=== PATIENT | female | born 1965 | race Caucasian/White ===

== ENCOUNTER 2016-06-29 15:02 | Emergency (ER) | payer OTHER ==
[2016-06-29 15:20] LABS: MANUAL DIFF NEEDED? NO
[2016-06-29 15:28] LABS: BASO% 0.2 % (0.0-0.8); EOS# 0.04 X1000 (0.0-0.7); EOS% 0.7 % (0.0-10.0); HEMATOCRIT 40.1 % (37.0-47.0); HEMOGLOBIN 14.2 g/dL (12.0-16.0); LYMPH# 1.54 X1000 (1.2-3.4); LYMPH% 25.1 % (20.5-51.1); MCH 30.9 PG (27-31); MCHC 35.4 g/dL (33-37); MCV 87.2 FL (81-99); MONO# 0.29 X1000 (0.11-0.59); MONO% 4.7 % (1.7-9.3); MPV 9.2 FL (7.4-10.4); NEUT% 69.3 % (42.2-75.2); PLT 229 X1000 (130-400)
[2016-06-29 15:34] LABS: INR 1.1; PROTIME 11.7 Seconds (9.2-11.7); PTT 24.3 Seconds (22.0-36.0)
[2016-06-29 15:38] LABS: AGAP 15; ALBUMIN 4.1 g/dL (3.5-5.0); ALKALINE PHOSPHATASE 89 U/L (32-104); BUN 15 mg/dL (8-22); CALCIUM 9.4 mg/dL (8.8-10.2); CHLORIDE 102 mmol/L (98-107); COSMO 282; GOT 116 U/L (10-30); GPT 53 U/L (10-36); MAGNESIUM 1.8 mg/dL (1.5-2.7); POTASSIUM 3.5 mmol/L (3.5-5.1); SODIUM 140 mmol/L (136-145); TCO2 23 mmol/L (25-35); TOTAL BILIRUBIN 0.59 mg/dL (0.20-1.00); TOTAL PROTEIN 6.4 g/dL (6.3-8.3)
[2016-06-29 15:40] LABS: CK PROFILE 187 U/L (24-173)
[2016-06-29 15:58] LABS: CK INDEX 1.7 (0.0-2.5); CK-MB 3.13 ng/mL (0.0-5.0)
--- NOTE | 2016-06-29 16:07 | Diag Imaging Result Document ---
PROCEDURE NAME: CHEST-2 VIEWS - 06/29/2016 TWO VIEWS OF THE CHEST: FINDINGS: There are no previous studies. There are no focal opacities. IMPRESSION: No acute disease.
[2016-06-29] MEDS ORDERED: ASPIRIN PO ONE (16:38)
[2016-06-29] MEDS ORDERED: G.I. COCKTAIL PO ONE (16:45)
[2016-06-29] MEDS ORDERED: ZOFRAN ODT PO ONE (16:45)
--- NOTE | 2016-06-29 16:52 | PROVIDER DOCUMENTATION ---
HPI-General Adult - General Chief Complaint: Chest Pain Stated Complaint: CP Time Seen by Provider: 06/29/16 16:37 Allergies/Adverse Reactions: Patient Allergies Allergy/AdvReac Type Severity Reaction Status Date / Time levofloxacin [From Levaquin] Allergy RASH Verified 06/29/16 18:25 ofloxacin [From Floxin] Allergy RASH Verified 06/29/16 18:25 acetaminophen AdvReac RASH Verified 06/29/16 18:25 [From Darvocet-N] propoxyphene napsylate * AdvReac RASH Verified 06/29/16 18:25 [From Darvocet-N] Home Medications: Home Medication List Medication Instructions Recorded Confirmed Last Taken Type Aspirin 81 mg PO DAILY 06/29/16 06/29/16 06/29/16 08:00 History 81 MG Citalopram Hydrobromide [Celexa] 20 mg PO DAILY 06/29/16 06/29/16 06/29/16 08: 00 History 20 MG Clonazepam [Klonopin] 1 mg PO DAILY 06/29/16 06/29/16 06/29/16 08:00 History 1 MG Levothyroxine Sodium [Synthroid] 88 mcg PO DAILY 06/29/16 06/29/16 06/29/16 08: 00 History 88 MCG Linaclotide [Linzess] 290 mcg PO DAILY 06/29/16 06/29/16 06/29/16 08:00 History 290 MCG Omeprazole [Prilosec] 40 mg PO DAILY #20 capsule. 06/29/16 Unknown Rx Phenytoin [Dilantin] 400 mg PO DAILY 06/29/16 06/29/16 06/29/16 08:00 History 400 MG - History of Present Illness -Gen Adult Nature of Presenting Problems: Pt states that today she was at a parade and started having mid chest pain with Nausea and vomiting. She states that it came out of nowhere and that she was given nitro spray SL and ASA 325mg at the time of onset. She also states that last week she began having right sided facial numbness and now has a mild right sided facial palsy on exam. Review of Systems - Adult - REVIEW OF SYSTEMS - ADULT Constitutional: reports: no symptoms reported. denies: chills, fever, fatique, night sweats, weight gain, weight loss Eyes: reports: no symptoms reported. denies: discharge, dry eyes, decreased vision, blurred vision, double vision, eye pain Ears, Nose, Mouth & Throat: reports: no symptoms reported. denies: ear discharge, ear pain, hearing loss, tinnitus, epistaxis, sinus problem, nose pain , loose teeth, mouth/dental pain, mouth swelling, hoarseness, throat pain, throat swelling Cardiovascular: reports: see HPI, chest pain. denies: edema, heart murmur, irregular heart rate, orthopnea, palpitations, poor circulation, PND, syncope Respiratory: reports: no symptoms reported. denies: chronic cough, cough, dyspnea on exertion, hemoptysis, shortness of breath, wheezing Gastrointestinal: reports: see HPI, abdominal pain, nausea, vomiting. denies: hematemesis, constipation, diarrhea, difficulty swallowing, frequent heartburn, poor appetite, rectal bleeding Genitourinary: reports: no symptoms reported. denies: dysuria, discharge, frequency, flank pain, frequent UTI's, hesitency, urinary retention, urgency Musculoskeletal: reports: no symptoms reported. denies: bone pain, frequent leg cramps, joint swelling, muscle aches, muscle weakness, neck pain Integumentary: reports: no symptoms reported. denies: hives, hair loss, itching , skin sores/ulcer Neurological: reports: see HPI, numbness, paresthesia. denies: ataxia, dizziness/vertigo, headache/migraines, loss of balance, seizure, slurred speech , syncope, tremors Psychiatric: reports: no symptoms reported. denies: anxiety, anti-depressant use, alcohol/drug dependence, depression, emotional problems, insomnia, panic attacks, suicidal thoughts Endocrine: reports: no symptoms reported. denies: change in skin pigment, excessive sweating, goiter, cold intolerance, increased hunger, increased thirst , polyuria Hematologic/Lymphatic: reports: no symptoms reported. denies: blood clots, easy bruising, low blood count, prolonged bleeding, swollen lymph nodes, transfusions Allergic/Immunologic: reports: no symptoms reported. denies: allergic reactions , allergic rhinitis, asthma, eczema, frequent infections, hay fever, hives, positive PPD, urticaria All Other Systems: Reviewed and Negative Past History - Adult - PAST MEDICAL HISTORY-ADULT Review of Records: reports: Old Records Reviewed, Nursing Assessment Review, Medications Reviewed, Social history reviewed & non-contributory. Major Childhood Illnesses: reports: denies history Cardiovascular: reports: denies history Respiratory: reports: denies history Gastrointestinal: reports: denies history Obstetrical/Gynecological: reports: denies history Genitourinary: reports: denies history Musculoskeletal: reports: denies history Neurological: reports: denies history Endocrine/Immune: reports: denies history Other Conditions: reports: denies history - FAMILY HISTORY Family History: reviewed, not pertinent Physical Exam-General - PHYSICAL EXAM-ADULT Initial Vital Signs Reviewed: Yes - CONSTITUTIONAL General Appearance: appears well, alert, no apparent distress - EYES Eyes: PERRL/EOMI, pink conjunctivae - HEAD, EARS, NOSE, MOUTH & THROAT HENMT: normocephalic/atraumatic, moist mucous membranes, normal ENT inspection - NECK Neck: non-tender, full range of motion, supple - RESPIRATORY Respiratory: chest non-tender, lungs clear, normal breath sounds, no pleuratic chest pain, no respiratory distress, no accessory muscle use - CARDIOVASCULAR Cardiovascular: normal peripheral pulses, regular rate, rhythm, no edema - CHEST (BREASTS) Chest/Breast: deferred - GASTROINTESTINAL (ABDOMEN) Abdominal Exam: normal bowel sounds, soft, no organomegaly, no pulsatile mass, tenderness - GENITOURINARY Female Genitalia/Pelvic Exam: deferred Rectal Exam: deferred - MUSCULOSKELETAL Back Exam: normal inspection, no CVA tenderness, no vertebral tenderness Extremity: normal range of motion, non-tender, normal gait, normal inspection - SKIN Integumentary: normal color, normal turgor, warm/dry - NEUROLOGIC Neurologic: grossly normal, facial droop (mild right sided facial palsy when trying to smile) - PSYCHIATRIC Psych/Mental Status: normal mood/affect, normal thought content, normal thought process, oriented x 3 Progress - PLAN OF CARE/RESULTS Progress/Plan/Lab Results: Laboratory Tests 06/29/16 06/29/16 06/29/16 15:12 15:12 15:12 WBC 6.13 RBC 4.60 Hgb 14.2 Hct 40.1 MCV 87.2 MCH 30.9 MCHC 35.4 RDW Std Deviation 12.6 Plt Count 229 MPV 9.2 Immature Gran % (Auto) 0.0 Neut % (Auto) 69.3 Lymph % (Auto) 25.1 [place] % (Auto) 4.7 Eos % (Auto) 0.7 Baso % (Auto) 0.2 Immature Gran # (Auto) 0.00 Neut # (Auto) 4.25 Lymph # (Auto) 1.54 [place] # (Auto) 0.29 Eos # (Auto) 0.04 Baso # (Auto) 0.01 PT INR PTT (Actin FS) D-Dimer 0.40 Sodium 140 Potassium 3.5 Chloride 102 Carbon Dioxide 23 L Anion Gap 15 BUN 15 Creatinine 0.9 Estimated GFR/1.73 m2 > 60 BUN/Creatinine Ratio 17 Glucose 126 H Calculated Osmolality 282 Calcium 9.4 Magnesium 1.8 Total Bilirubin 0.59 AST 116 H ALT 53 H Alkaline Phosphatase 89 Creatine Kinase 187 H Creatine Kinase Index 1.7 CK-MB (CK-2) 3.13 Troponin T Unv-L-Py[place]am Pept Total Protein 6.4 Albumin 4.1 Globulin 2.3 Albumin/Globulin Ratio 1.8 06/29/16 06/29/16 06/29/16 15:12 15:12 15:12 WBC RBC Hgb Hct MCV MCH MCHC RDW Std Deviation Plt Count MPV Immature Gran % (Auto) Neut % (Auto) Lymph % (Auto) [place] % (Auto) Eos % (Auto) Baso % (Auto) Immature Gran # (Auto) Neut # (Auto) Lymph # (Auto) [place] # (Auto) Eos # (Auto) Baso # (Auto) PT 11.7 INR 1.10 PTT (Actin FS) 24.3 D-Dimer Sodium Potassium Chloride Carbon Dioxide Anion Gap BUN Creatinine Estimated GFR/1.73 m2 BUN/Creatinine Ratio Glucose Calculated Osmolality Calcium Magnesium Total Bilirubin AST ALT Alkaline Phosphatase Creatine Kinase Creatine Kinase Index CK-MB (CK-2) Troponin T < 0.010 [id number] Pept 28 Total Protein Albumin Globulin Albumin/Globulin Ratio Orders Category Date Time Status CHEST-2 VIEWS [RAD] Stat Exams 06/29/16 15:[address] ABD WITH IV CONTRAST ONLY [CT] Stat Exams 06/29/16 16:45 Ordered HEAD W/O CONTRAST [CT] Stat Exams 06/29/16 16:47 Ordered CBC WITH ELECTRONIC DIFF [HEME] Stat Lab 06/29/16 15:12 Completed CK PROFILE [SP CHEM] Stat Lab 06/29/16 15:12 Completed CK PROFILE [SP CHEM] Stat Lab 06/29/16 16:37 Uncollected COMPREHENSIVE METABOLIC PANEL [CHEM] Stat Lab 06/29/16 15:12 Completed D-DIMER [CHEM] Stat Lab 06/29/16 15:12 Completed ETOH [ALCOHOL BLOOD] Stat Lab 06/29/16 16:46 Ordered MAGNESIUM [CHEM] Stat Lab 06/29/16 15:12 Completed PRO B-NATRIURETIC PEPTIDE Stat Lab 06/29/16 15:12 Completed PROTIME WITH INR [COAG] Stat Lab 06/29/16 15:12 Completed PTT [COAG] Stat Lab 06/29/16 15:12 Completed TROPONIN T Stat Lab 06/29/16 15:12 Completed TROPONIN T Stat Lab 06/29/16 16:37 Uncollected Aspirin Med 06/29/16 16:38 Stop Req 325 mg PO NOW ONE Lido/Mclean Alk/Al&mg Hydrox [G.i. Cocktail] Med 06/29/16 16:45 Discontinued 30 ml PO NOW ONE Ondansetron Odt [Zofran Odt] Med 06/29/16 16:45 Discontinued 4 mg PO NOW ONE EKG [EKG] Stat Ther 06/29/16 15:12 Ordered Vital Signs - 24 hr 06/29/16 15:14 Temperature 97.5 F L Pulse Rate 69 Respiratory 20 Rate Blood Pressure 163/93 O2 Sat by Pulse 100 Oximetry - XRAY 1 XRAY Study: Chest Impression: Normal XRAY Interpretation: nad(hcb) - CT/MRI 1 CT Study: Abdomen Impression: See EMR Report CT Results: mild biliary dilation w/o apparent stone or lesion (rad) 2 CT Study: Head Impression: Normal, See EMR Report CT Results: nad (RAD) Departure - Departure Time of Disposition Order: 18:41 DIAGNOSIS: Non-cardiac chest pain, Transaminitis Abdominal pain Qualifiers: Abdominal location: right upper quadrant Qualified Code(s): R10.11 - Right upper quadrant pain Disposition: HOME 01 Certified Medical Emergency: Emergent Condition: Good Additional Instructions: follow up with GI ED Follow Up Instructions: You have been treated by a care provider in the Emergency Department. These instructions are being provided to you so you can have an understanding of how to care for yourself upon discharge. Upon discharge from the Emergency Department, you are responsible for making arrangements for follow-up care by a physician of your choice. Take all prescribed medications as directed. Return to the Emergency Department immediately for any new or worsening symptoms. You may call the Physician Referral phone number at [phone] to obtain a list of Physicians who are taking new patients. Prescriptions: Omeprazole [Prilosec] 40 mg PO DAILY #20 capsule.dr Referrals: Troy Loomis MD [STAFF PHYSICIAN] - Attestation - Physician/ GUILLE Attestation Patient care was provided by Advanced Practice Provider:: Yes Advanced Practice Provider:: Paulina Rocha Advanced Practice Provider documentation review:: The Mid-level provider documentation, treatment plan and medical decision making was reviewed by the physician who agrees with all treatment and medical decision making by the MLP.
[2016-06-29 17:45] LABS: AMYLASE 60 U/L (20-200); LIPASE 83 U/L (13-60)
--- NOTE | 2016-06-29 19:02 | Diag Imaging Result Document ---
PROCEDURE NAME: HEAD W/O CONTRAST - 06/29/2016 CT OF THE HEAD WITHOUT CONTRAST: FINDINGS: There is no evidence of mass effect, bleed, or abnormal extra-axial fluid collection. The visualized paranasal sinuses are clear. The calvarium is intact. There are no previous studies. IMPRESSION: No evidence of acute disease.
--- NOTE | 2016-06-29 19:18 | Diag Imaging Result Document ---
PROCEDURE NAME: CT ABD WITH IV CONTRAST ONLY - 06/29/2016 CT OF THE ABDOMEN WITH INTRAVENOUS CONTRAST: FINDINGS: The visualized portion of the chest is unremarkable. There is a small cyst in the left hepatic lobe on image 14 measuring 6 mm in diameter. There is apparent periportal edema and mild intrahepatic biliary dilatation. There is no evidence of extrahepatic biliary dilatation. The common bile duct measuring less than 7 mm in the kasandra hepatis. There has been cholecystectomy. The adrenal glands are not enlarged. There is no evidence of aneurysm and the mesenteric vessels are patent. The left kidney is without evidence of hydronephrosis or mass. The right kidney is in the pelvis without evidence of hydronephrosis. The pancreas is unremarkable. There are several splenules near the splenic hilus anteriorly. There is no evidence of bowel dilatation. No significant adenopathy is present. IMPRESSION: Pelvic right kidney. Intrahepatic biliary dilatation +/- periportal edema. No definite evidence of obstructing stone or other lesion.
[2016-06-29] MEDS ORDERED: MORPHINE IV ONE (19:21)
[2016-06-29 19:46] VITALS: BP 118/77
--- NOTE | 2016-07-01 07:51 | EKG Report ---
Test Performed on : 06/29/2016 3:08:28 PM Test Reason : Chest Pain Blood Pressure : / mmHG Vent. Rate : 068 BPM Atrial Rate : 068 BPM P-R Int : 126 ms QRS Dur : 102 ms QT Int : 448 ms P-R-T Axes : 067 058 028 degrees QTc Int : 476 ms Normal sinus rhythm. Normal ECG No previous ECGs available Unconfirmed Result
== END 2016-06-29 19:46 | disposition home or self-care (01) ==
LOC: ED 15:02
DX: R07.89 Other chest pain (principal); R10.11 Right upper quadrant pain; R74.0 Nonspecific elevation of levels of transaminase and lactic acid dehydrogenase [LDH]; R11.2 Nausea with vomiting, unspecified; R20.0 Anesthesia of skin; G51.0 Bell's palsy; R20.9 Unspecified disturbances of skin sensation; Z79.899 Other long term (current) drug therapy; Z79.82 Long term (current) use of aspirin
CPT/HCPCS: 70450; 71020; 74160; 80053; 82150; 82550; 82553; 83690; 83735; 83880; 84484; 85025; 85379; 85610; 85730; 93005; G0480; J2270; Q9967; 80320